=== PATIENT | female | born 1990 | race African-American/Black ===

== ENCOUNTER 2017-05-29 04:28 | Emergency (ER) | payer OTHER ==
[~2017-05-29] VITALS: Ht 154.9 cm; Wt 77.5 kg
[2017-05-29 04:34] VITALS: Ht 154.9 cm; Wt 77.5 kg
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
[2017-05-29] MEDS ORDERED: KETOROLAC 30 MG INJ IM STA (06:58)
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
[2017-05-29] MEDS ORDERED: IBUP-1542 PO (07:55)
[2017-05-29] MEDS ORDERED: HYDROCODONE/APAP (5/325) TAB PO ONE (08:00)
[2017-05-29] MEDS ORDERED: HYDR-906 PO (08:19)
[2017-05-29 08:24] VITALS: BP 128/87; PULSE 66; RESP 20
== END 2017-05-29 08:25 | disposition home or self-care (01) ==
LOC: FTE 04:28
DX: M54.9 Dorsalgia, unspecified (principal); M54.2 Cervicalgia; R51 Headache
CPT/HCPCS: 70450; 71010; J1885; Z7610; 96372